=== PATIENT | female | born 1950 | race Caucasian/White ===

== ENCOUNTER 2018-02-27 12:58 | Inpatient (IN) | payer OTHER ==
[~2018-02-27] VITALS: Ht 152.4 cm; Wt 43.4 kg
--- NOTE | ~2018-02-27 | 2DMMODE ---
[facility] [address] [place] [address] 2 D/M-MODE ECHOCARDIOGRAM Name: STEVESAM RONI Room #: 423-1 ADM IN M.R.#: [id number] Admission: 02/27/18 Attend Phys: Randolph Ray, Discharge: Date of : 54 Date of Service: 03/01/18 0908 Report #: [id number] THIS REPORT FOR: //name// APPROVED REPORT Study performed: 02/28/2018 12:53:06 EXAM: Comprehensive 2D, Doppler, and color-flow Echocardiogram Patient Location: Echo lab Room #: 423 Status: routine BSA: 1.36 HR: 85 bpm BP: 92/62 mmHg Rhythm: NSR Other Information Study Quality: Adequate Indications Short of breath. Hx: AL, stent, CHF, AICD, HTN, HLP, tobacco. 2D Dimensions RVDd: 28.20 mm IVSd: 5.90 (7-11mm) LVOT Diam: 19.89 (18-24mm) LVDd: 46.44 mm PWd: 7.55 (7-11mm) Ascending Ao: 28.27 (22-36mm) LVDs: 35.71 (25-40mm) Aortic Root: 30.65 mm Volumes Left Atrial Volume (Systole) Single Plane 4CH: 19.17 mL Single Plane 2CH: 28.62 mL LA ESV Index: 18.00 mL/m2 Aortic Valve AoV Peak Yefri.: 1.48 m/s AO Peak Gr.: 8.77 mmHg LVOT Max P.15 mmHg LVOT Max V: 1.02 m/s CASEY Vmax: 2.14 cm2 Mitral Valve E/A Ratio: 0.8 MV Decel. Time: 134.80 ms MV E Max Yefri.: 0.86 m/s [facility] [place] [address] 2 D/M-MODE ECHOCARDIOGRAM Name: SAM WILSON [facility] Room #: 423-1 ADM IN M.R.#: [id number] Admission: 02/27/18 Attend Phys: Randolph Ray, Discharge: Date of : 54 Date of Service: 03/01/18 0908 Report #: [id number] MV A Yefri.: 1.05 m/s MV PHT: 39.09 ms IVRT: 83.04 ms Pulmonary Valve PV Peak Yefri.: 0.95 m/s PV Peak Gr.: 3.59 mmHg Pulmonary Vein P Vein S: 0.54 m/s P Vein D: 0.88 m/s P Vein S/D Ratio: 0.61 Tricuspid Valve TR Peak Yefri.: 3.68 m/s RAP Estimate: 5.00 mmHg TR Peak Gr.: 54.24 mmHg PA Pressure: 59.00 mmHg Left Ventricle The left ventricle is normal size. Regional wall motion abnormalities are noted.ant wall hypo There is normal left ventricular wall thickness. Left ventricular systolic function is severely decreased. LVEF is 30-35%. Mild diastolic dysfunction is present (impaired relaxation pattern). Right Ventricle The right ventricle is normal size. The right ventricular systolic function is normal. Device lead is present in the right ventricle. Atria The left atrium size is normal. The right atrium size is normal. Aortic Valve The aortic valve is normal in structure. No aortic regurgitation is present. There is no aortic valvular stenosis. Mitral Valve The mitral valve is normal in structure. Trace mitral regurgitation. No evidence of mitral valve stenosis. Tricuspid Valve The tricuspid valve is normal in structure. Moderate tricuspid regurgitation. Estimated PAP is 60mmHg. Pulmonic Valve Pulmonic valve is not well visualized. [facility] [address] [place] [address] 2 D/M-MODE ECHOCARDIOGRAM Name: SAM WILSON [facility] Room #: 423-1 [facility] IN ..#: [id number] Admission: 02/27/18 Attend Phys: Randolph Ray, Discharge: Date of : 54 Date of Service: 03/01/18 0908 Report #: [id number] Great Vessels The aortic root is normal in size. The ascending aorta is normal in size. IVC is normal in size and collapses >50% with inspiration. Pericardium There is no pericardial effusion. <Conclusion> The left ventricle is normal size. Regional wall motion abnormalities are noted.ant wall hypo LVEF is 30-35%. Mild diastolic dysfunction is present (impaired relaxation pattern). The right ventricle is normal size. The left atrium size is normal. The aortic valve is normal in structure. Trace mitral regurgitation. Moderate tricuspid regurgitation. Estimated PAP is 60mmHg. The aortic root is normal in size. There is no pericardial effusion. <ELECTRONICALLY SIGNED> By: Av Silva MD, FACC 03/01/18907 7 7 Av Silva MD, FACC /INF
--- NOTE | ~2018-02-27 | PATH ---
[facility] [address] [place] [address] PATHOLOGY RPT PROCEDURE Name: WILSONSAM RONI Room #: 423-1 DIS IN M.R.#: [id number] Admission: 02/27/18 Date of : 54 Discharge: 03/05/18 Report #: [id number] Path Case #: [id number] L[facility] Accession Number: [id number] . 01 Material submitted: . LEFT LOBE LIVER MASS BX . 01 Clinician provided ICD-10: R10.9 . 01 Clinical history: . Left lobe liver mass . 02 Diagnosis: Liver, left lobe liver mass, needle core biopsy: - COMPATIBLE WITH A POORLY DIFFERENTIATED CARCINOMA, PLEASE SEE COMMENT. [facility]/03/04/2018 . 02 Comment: Examination shows a poorly differentiated malignant neoplasm with a subtle glandular architecture. Based on the presence of multiple bone lesions, large hepatic lesion, adrenal mass, lung masses, splenic mass, as well as hilar lymphadenopathy, immunohistochemical stains are ordered on block A1. The tumor shows membranous reactivity to Vimentin, CK7, and CK19. The nonreactive immunohistochemical stains include hepatocyte specific antigen, CK20, TTF-1 and p63. . Based on the morphology as well as the reactive immunohistochemical stains, the differential diagnosis includes a poorly differentiated lung adenocarcinoma, hepatobiliary cholangiocarcinoma, as well as a poorly differentiated renal cell carcinoma and tumor of Mullerian (endometrial) origin. Clinical correlation is required. . Co-review: Dr. Nayla Sawant. . Findings are discussed with Dr. Royal Delacruz at approximately 12:25 pm on 03/04/2018. (IUV:pit 03/04/2018) . 02 Electronically signed: . Maisha Oneill MD, Pathologist NPI- [id number] . 01 Gross description: . Received in formalin labeled "Sam Wilson, left lobe liver BX," are multiple fragments of needle cores of lowe soft tissue measuring 2.3 x 0.4 x 0.1 cm in aggregate dimensions. The [place] [address] PATHOLOGY RPT PROCEDURE Name: SAM WILSON RONI Room #: 423-1 DIS IN M.R.#: [id number] Admission: 02/27/18 Date of : 54 Discharge: 03/05/18 Report #: [id number] Path Case #: [id number] cassette A1. (TSD; 02/28/2018) TOB/TOB . 02 Pathologist provided ICD-10: C22.9 . 02 CPT . 447670, E80818, S75848 Specimen Comment: A courtesy copy of this report has been sent to Specimen Comment: [phone], . Specimen Comment: Report sent to / DR MORRISON Specimen Comment: A duplicate report has been generated due to demographic updates. Performed at: [address], [place] [id number] MD Larry Borges MD Phone: [phone] Performed at: [address] [id number] MD Maisha Oneill MD Phone: [phone]
--- NOTE | ~2018-02-27 | HC ---
[facility] [place] [address] CONSULTATION Name: SAM WILSON Room #: 423-1 ADM IN M.R.#: [id number] Admission: 02/27/18 Attend Phys: Randolph Rya MD Discharge: Date of : 54 Report #: [id number] THIS REPORT FOR: //name// CC: Cristina King MD REFERRING PHYSICIAN: Randolph Ray M.D. REASON FOR CONSULTATION: Possible lung cancer with liver masses. HISTORY OF PRESENT ILLNESS: The patient is a very pleasant 67-year-old female. If I recall, she is originally from [place] and maybe now lives in [place]. 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 She has about a 3-week history of feeling like a low-grade fever, having some weakness, having poor appetite, also some left shoulder/flank pain and also shortness of air, especially when going upstairs. She has got 14 stairs to her house/apartment. No coughing. Bowels have been plus or minus for her. Weight has been maybe down 7 pounds in the past week; she is unsure about a longer time for it than that. No new skin spots. She is not aware of any lymphadenopathy. Has had some abdominal discomfort. Scans here do show the concern for multifocal liver disease with a 9-cm hepatic mass with central necrosis, also a 3 cm left adrenal mass, a splenic mass and a lytic bone lesion at L2. There is a pathologic fracture there. There is also infiltrate in the right middle lobe of the lung, but CT chest is pending as is MRI head. PAST MEDICAL HISTORY: The patient's past medical history is notable for history of MA in about 1989, with maybe some heart procedure with angioplasty and stent to the LAD at that time at a later date. 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 Cristina Smith for that. SOCIAL HISTORY: Smoked up until several weeks ago. Alcohol, none significant. FAMILY HISTORY: Father had heart trouble. Mother had breast cancer in her 70s, from something else. She has 5 siblings. One of the sisters I think had a congenital heart trouble. If I understand right, one of the brothers may have had a skin cancer. MEDICATIONS AT HOME: Include alprazolam, aspirin, hydrochlorothiazide, [address] [address] CONSULTATION Name: SAM WILSON RONI Room #: 423-1 ADM IN M.R.#: [id number] Admission: 02/27/18 Attend Phys: Randolph Ray MD Discharge: Date of : 54 Report #: [id number] atorvastatin, digoxin 0.125, carvedilol 12.5 and bupropion 100 daily. Here in the hospital, her medications include bupropion 100 daily, digoxin 0.125 daily, atorvastatin 80 daily and aspirin 325 daily. I added hydrocodone p.r.n. She is on Lovenox 40 at bedtime, carvedilol 12.5 b.i.d., morphine IV p.r.n., Zofran p.r.n., ceftriaxone 1 g daily, Xanax 0.25 t.i.d., azithromycin 500 mg daily, MiraLax daily and IV fluids at 80 mL an hour. PHYSICAL EXAMINATION: GENERAL: The patient appears her stated age. VITAL SIGNS: Height is 5 feet, which is 152.4 cm. Weight is 95.7 pounds, which is 43.4 kilograms. Recent blood pressure is 78/58 and earlier had run at 100/55, O2 sat 91%, respirations 18, pulse 88 and temperature is 97.9. MOOD: She is alert, pleasant and anxious. NEUROLOGIC: Face is symmetrical. Speech and thought pattern appear to be normal. She is moving all extremities. LYMPHATICS: No enlarged lymph nodes in the neck, axillary or groin regions. LUNGS: Slightly diminished on the right base. ABDOMEN: Slightly tender. There may be a slight fullness; however, it has been difficult to examine the patient due to some discomfort. EXTREMITIES: Without clubbing or cyanosis. LABORATORY DATA: Labs are notable for electrolytes that are normal. Potassium is slightly low at 3.2, BUN of 15 and creatinine 0.8. Bilirubin normal, alkaline phosphatase 135. Albumin 3.2. Total protein 7.6. Coags, I ordered, are pending. White count this morning 7.4, hemoglobin 11.3, MCV 90.7, RDW 12.7 and platelets 181,000. Differential has slight increase in segment neutrophils and monocyte percentage. TSH normal at 0.963. Vitamin B12 low normal at 398. U/A, not acute. ASSESSMENT AND PLAN: 1. Changes of CAT scan including liver mass, adrenal mass, splenic mass and L2 lesion, worrisome for metastatic cancer. I had talked with the ER doctor yesterday. Await CT chest and MRI head. I had also talked with Dr. Dario Talbert in Interventional Radiology about consulting for probable biopsy. This was all discussed with the patient and her family. They are aware that we will need to wait to see if this is cancer and then what type and also there may be some markers to determine appropriate therapy, if she wishes to take it. 2. Pain. Has morphine and opioids available. 3. Heart failure and coronary artery disease. Defer carvedilol, digoxin and hydrochlorothiazide to others. 4. Hyperlipidemia. Defer stents to others. 5. Possible pneumonia. Continues 2 antibiotics. Cultures pending. 6. Depression. Continues bupropion. 7. History of skin cancers. Follows with Dr. Smith. No active issues. [address] [address] CONSULTATION Name: SAM WILSON [facility] Room #: 423-1 ADM IN M.R.#: [id number] Admission: 02/27/18 Attend Phys: Randolph Ray MD Discharge: Date of : 54 Report #: [id number] head ok CT chest large right hilar mass and small PE US left leg dvt in popliteal, right clear We will follow with you. <ELECTRONICALLY SIGNED> By: Bar Delacruz MD 03/01/18 0720 0841 1121 Bar Delacruz MD /caryn
--- NOTE | ~2018-02-27 | HC ---
[facility] [place] [address] CONSULTATION Name: SAM WILSON Room #: 423-1 ADM IN M.R.#: [id number] Admission: 02/27/18 Attend Phys: Randolph Ray MD Discharge: Date of : 54 Report #: [id number] THIS REPORT FOR: //name// CC: Randolph King PULMONARY CONSULTATION REFERRAL PHYSICIAN: Randolph Ray MD. REASON FOR REFERRAL: Lung mass. HISTORY OF PRESENT ILLNESS: The patient is a 67-year-old white female who was admitted with abdominal pain and back pain. CT chest showed large lung mass. A pulmonary consultation was requested. The patient has been previously seen by Dr. Houston for COPD in the past. She states that she has smoked about 2 packs a day, having quit recently. She was in her usual state of health until few weeks prior to presentation. She started to develop mild abdominal pain, dizziness, lightheadedness, and fever. CT abdomen and pelvis shows metastatic process of the liver, spleen, spine, kidneys. CT of the chest revealed a large right-sided lung mass. She is now status post liver biopsy. She is complaining of pain there. Otherwise, denies any recent night sweats. Denies any recent febrile illness, hemoptysis, hematemesis, hematochezia or melena. PAST MEDICAL HISTORY: Notable for hypertension, depression, coronary artery disease, myocardial infarction in 1997, depression, ischemic cardiomyopathy with ejection fraction 25% from a cardiac catheterization in 2012, history of supraventricular tachycardia. PAST SURGICAL HISTORY: Notable for bladder repair, defibrillator implantation, hysterectomy. She also had prior oral surgery. ALLERGIES: None to medications. HOME MEDICATIONS: Reviewed, which include Xanax, aspirin, Lipitor, Wellbutrin, Coreg, Lanoxin, hydrochlorothiazide. FAMILY HISTORY: Notable for mother with peripheral vascular disease and diabetes. Father with coronary artery disease. SOCIAL HISTORY: The patient had smoked until recently about 1-2 packs a day for [facility] [place] [address] CONSULTATION Name: SAM WILSON [facility] Room #: 423-1 [facility] IN .R.#: [id number] Admission: 02/27/18 Attend Phys: Randolph Ray MD Discharge: Date of : 54 Report #: [id number] most of her life. Drinks occasionally. She has family who lives close by in [place]. REVIEW OF SYSTEMS: As mentioned above. Otherwise, 10-point system review is notable for progressive weakness, some weight loss. PHYSICAL EXAMINATION: GENERAL: She is awake, alert, appears mildly distressed. VITAL SIGNS: Temperature is 97.3 degrees Fahrenheit, pulse is 90, respiratory rate is 16, blood pressure is 90/60 mmHg, saturation 92%. HEENT: Unremarkable. NECK: Supple, without lymphadenopathy or thyromegaly. CHEST: Breath sounds are fair due to poor effort. Decreased breath sounds in the right lung field. CARDIOVASCULAR: Normal S1, S2. No murmur or gallop. There is no JVD. There is no carotid bruit. Pulses are 2+/4+ bilaterally. ABDOMEN: Soft, tender in the right upper quadrant, no obvious masses felt. GENITOURINARY: Deferred. RECTAL: Deferred. EXTREMITIES: No edema. LABORATORY DATA: CT chest revealed a large central right hilar mass, which extends circumferentially around the pulmonary arteries and pulmonary veins along with bronchus intermedius. The bronchus intermedius appears to be more than 50% narrowed due to the lung mass. Subcarinal adenopathy is also noted. There is a necrotic 3 cm nodule seen in the right middle lobe associated with infiltrates in the right upper and right middle lobes. There is small nonobstructing pulmonary emboli noted in the right lower lobe. There appears to be questionable lung nodule seen in the left lower lobe also. CT abdomen and pelvis revealed a multifocal metastatic disease including a 9 cm hepatic mass with central necrosis, L2 vertebral body and right iliac wing lytic lesion, 1.5 cm splenic mass, probable pathologic fracture involving the L2 vertebral body. Procalcitonin level is 0.5. Prealbumin 14.5. CT head was grossly unremarkable for any acute intracranial changes or masses. Doppler ultrasound of the lower extremities shows DVT involving the left popliteal vein. Electrolytes: Sodium 138, potassium 3.2, chloride 102, CO2 is 27, BUN is 15, creatinine 0.8. Liver enzymes are mildly abnormal. WBC is 11,700, hemoglobin is 13.1, platelets are normal. No evidence of bandemia. IMPRESSION: 1. Large right hilar mass along with right middle lobe necrotic lesion, mediastinal adenopathy along with probable intra-abdominal metastases in this 67-year-old white female. Primary bronchogenic carcinoma with mets is likely. 2. Infiltrates, right middle lobe, right upper lobe, likely postobstructive pneumonia. 3. Coronary artery disease with ischemic cardiomyopathy. [facility] [address] [place] [address] CONSULTATION Name: SAM WILSON Room #: 423-1 ADM IN M.R.#: [id number] Admission: 02/27/18 Attend Phys: Randolph Ray MD Discharge: Date of : 54 Report #: [id number] 4. Hypertension. 5. Tobacco abuse. RECOMMENDATION: We will await the result of her ultrasound and biopsy. This likely represents stage 4 metastatic process. Agree with broad-spectrum antibiotics to treat for presumed postobstructive pneumonia. In regards to lung pathology, the patient may require urgent treatment involving the bronchus intermedius. It appears to be narrowing due to the lung mass. Either radiation therapy or brachytherapy may be an option. Oncology has been consulted. She has underlying COPD. Baseline spirometry will be helpful, though I am not certain patient can do the procedure. Continue bronchodilators for now. Wean O2 for saturation 90%. Overall outlook appears to be quite poor given the extensive metastatic process. Thank you for this consultation. <ELECTRONICALLY SIGNED> By: Jefferson Naylor MD 03/01/18 1545 1753 2225 Jefferson Naylor MD /nt
--- NOTE | ~2018-02-27 | EKG ---
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: MZOODanna : 1950 Requested By: Leah Ewing Order Number: [id number] MD: Jonathan Dunham Measurements Intervals [place] Rate: 103 P: 71 [place]: 143 QRS: -47 QRSD: 80 T: 62 QT: 332 QTc: 435 Interpretive Statements Sinus tachycardia Probable left atrial enlargement LAD, consider left anterior fascicular block LVH with secondary repolarization abnormality Anterior infarct, old Compared to ECG 06/16/2003 05:35:37 Electronically Signed On 03-04-2018 16:52:19 CDT by Jonathan Dunham [email or web address] <ELECTRONICALLY SIGNED> By: Jonathan Dunham MD 03/04/18 1652 1311 1311 Jonathan Dunham MD /EPI
--- NOTE | ~2018-02-27 | HC ---
[facility] [place] [address] CONSULTATION Name: SAM WILSON RONI Room #: 423-1 DIS IN M.R.#: [id number] Admission: 02/27/18 Attend Phys: Randolph Ray MD Discharge: 03/05/18 Date of : 54 Report #: [id number] THIS REPORT FOR: //name// CC: Randolph King HISTORY OF PRESENT ILLNESS: A 67-year-old female who is well known to me. I followed her for 20 years now since an acute anterior wall myocardial infarction with an emergent stent that was placed in 1997 and subsequently, a moderate ischemic cardiomyopathy with AICD. History of SVT, although minimal recurrence of any heart failure. Ejection fraction has been in the 30% range, mild carotid disease. She has been relatively stable from a cardiac perspective. She has been compliant with her medications. Unfortunately, she has been having some significant weight loss; the daughters have talked about a 7-pound weight loss and weak for the last few months. She continued to be a smoker after her coronary event 20 years ago, but however, did quit last December. Also had significant left-sided flank and back pain. The CAT scan looks like lytic lesions with metastatic disease to liver, spleen, kidney and spine. Some definite anorexia, some intermittent nausea, vomiting and constipation. She has had some intermittent diarrhea. MEDICATIONS: Her medications have been Xanax, aspirin, Lipitor 80, Wellbutrin, carvedilol 3.125 b.i.d., digoxin 0.125 and hydrochlorothiazide. PAST MEDICAL HISTORY: Positive for coronary artery disease with emergent stents; significant anterior infarct with ischemic cardiomyopathy, EF 25% to 30% with ICD; PSVT; hypertension; hypercholesterolemia and depression. She has had a prior hysterectomy and bladder repair. ALLERGIES: LOSARTAN, ADONIS INHIBITORS AND SITAGLIPTIN. FAMILY HISTORY: Father with premature coronary disease. SOCIAL HISTORY: She is , daughters are present. She was a smoker until last December for 40+ years. Social alcohol use. REVIEW OF SYSTEMS: Negative, except for stated above, with the significant weight loss and progressive discomfort and pain. LABORATORY DATA: Potassium 3.2, creatinine 0.8. Alkaline phosphatase 135. BNP was 475. Troponin was negative. H and H 11.3 and 32.6, white count 7.4 and platelets 181,000. PHYSICAL EXAMINATION: GENERAL: She has minimal discomfort. She is alert. VITAL SIGNS: Blood pressure was low, but currently 92/62 with a pulse of 80. HEENT: Eyes reveal no xanthelasmas[place] [address] CONSULTATION Name: SAM WILSON [facility] Room #: 423-1 [facility] IN M.R.#: [id number] Admission: 02/27/18 Attend Phys: Randolph Ray MD Discharge: 03/05/18 Date of : 54 Report #: [id number] NECK: Shows preserved upstrokes, without JVD or bruits. LUNGS: Slight prolonged phase, but clear. CARDIAC EXAMINATION: Regular rate and rhythm, S1, S2 distant. ABDOMEN: Soft. No specific tenderness. EXTREMITIES: Reveal trace edema. Distal pulses intact. NEUROLOGIC: Nonfocal. SKIN: Warm and dry, without xanthoma or ulcer. MUSCULOSKELETAL: Generalized arthritic changes. ASSESSMENT: 1. Ischemic cardiomyopathy, ejection fraction 25% to 30%, functional class 1. 2. Coronary artery disease with emergent left anterior descending stent, 1997. 3. Hypertension. 4. Hypercholesterolemia. 5. Early diagnosis is metastatic disease with lytic lesions. RECOMMENDATIONS AND PLAN: We will repeat her echo Doppler and we will interrogate her ICD, currently being staged or looking for diagnosis. She is on no anticoagulants, so she could proceed with biopsy. Head CT today. I have discussed with Dr. Ray and will call Dr. Delacruz of Hematology-Oncology. We will continue to follow with you. We have discontinued her carvedilol and hypertensive medications. Her weight loss and her debilitated state has certainly decreased her blood pressure requirements. No evidence of overt heart failure here. We will continue to follow with you. Thank you for asking us to assist in the care of this patient. <ELECTRONICALLY SIGNED> By: Av Silva MD, FACC 03/13/18 1257 0925 1141 Av Silva MD, FACC /nt
[~2018-02-27 12:58] MED LIST: ASPIRIN325 PO; BYSTOLIC 5 MG5 M1 PO; HYDROCHLOROTH12.5 MG PO; KEFLEX250 MG PO; LANOXIN 0.120.125 M1 PO; LIPITOR80 MG PO; XANAX 0.25 MG0.25 MG PO
[2018-02-27 12:59] VITALS: BP 115/92
[2018-02-27 13:41] LABS: ABSOLUTE NEUTROPHILS 9.5 thou/uL (1.4-8.2); BASOPHILS 0.8 % (0.0-2.0); EOSINOPHILS 1.9 % (0.0-3.0); HEMATOCRIT 37.7 % (37.0-47.0); HEMOGLOBIN 13.1 gm/dL (12.0-15.0); LYMPHOCYTES 7.8 % (24.0-44.0); MCHC 34.9 g/dL (28.0-37.0); MONOCYTES 8.7 % (1.0-8.0); PLATELET COUNT 224 thou/uL (150-400); POLYS 80.8 % (36.0-66.0); RBC 4.23 mil/uL (4.20-5.00); RDW 12.4 % (10.5-14.5); WBC 11.7 thou/uL (4.0-11.0)
[2018-02-27 13:44] LABS: CALCIUM 9.4 mg/dL (8.5-10.1); CREATININE 0.7 mg/dL (0.6-1.0); POTASSIUM 3.5 mmol/L (3.5-5.1)
[2018-02-27 13:49] LABS: ALBUMIN 3.2 g/dL (3.4-5.0); TOTAL BILIRUBIN 0.7 mg/dL (<0.1-1.0); TOTAL PROTEIN 7.6 g/dL (6.4-8.2)
[2018-02-27 14:01] LABS: URINE BILIRUBIN NEGATIVE (Negative); URINE BLOOD NEGATIVE (Negative); URINE CLARITY SL CLOUDY; URINE COLOR YELLOW; URINE GLUCOSE-RANDOM* NEGATIVE (Negative); URINE KETONES NEGATIVE (Negative); URINE NITRITE-REFLEX NEGATIVE (Negative); URINE PROTEIN (DIPSTICK) TRACE (Negative); URINE UROBILINOGEN 0.2 E.U./dl (0.2-1.0)
[2018-02-27 14:02] LABS: URINE LEUKOCYTES-REFLEX TRACE (Negative)
[2018-02-27] MEDS ORDERED: CARVEDILOL12.5 MG PO (15:22)
[2018-02-27] MEDS ORDERED: WELLBUTRIN 100100 MG PO (15:23)
[2018-02-27 16:47] LABS: ALBUMIN 3.1 g/dL (3.4-5.0); TOTAL PROTEIN 7.8 g/dL (6.4-8.2)
[2018-02-27 16:56] VITALS: BP 100/55
[2018-02-27 17:13] LABS: TSH 0.963 uIU/mL (0.358-3.740)
[2018-02-27 17:16] VITALS: BP 92/53
[2018-02-27 19:07] VITALS: BP 103/64
[2018-02-28] VITALS (9 sets, daily range): BP systolic 78–94; BP diastolic 49–62
[2018-02-28 05:29] LABS: HEMATOCRIT 32.6 % (37.0-47.0); HEMOGLOBIN 11.3 gm/dL (12.0-15.0); MCH 31.5 pg (26.0-34.0); MCHC 34.8 g/dL (28.0-37.0); MCV 90.7 fL (80.0-100.0); RBC 3.59 mil/uL (4.20-5.00); RDW 12.7 % (10.5-14.5); WBC 7.4 thou/uL (4.0-11.0)
[2018-02-28 05:36] LABS: CALCIUM 8.1 mg/dL (8.5-10.1); CREATININE 0.8 mg/dL (0.6-1.0); MAGNESIUM 1.8 mg/dL (1.8-2.4); POTASSIUM 3.2 mmol/L (3.5-5.1)
[2018-02-28 08:54] LABS: APTT 33.5 Seconds (24.5-32.8); PROTIME 10.4 Seconds (9.3-11.4)
[2018-03-01 04:30] VITALS: BP 100/57
[2018-03-01 05:50] LABS: HEMATOCRIT 28.8 % (37.0-47.0); HEMOGLOBIN 9.9 gm/dL (12.0-15.0); MCH 31.1 pg (26.0-34.0); MCHC 34.4 g/dL (28.0-37.0); MCV 90.4 fL (80.0-100.0); RBC 3.18 mil/uL (4.20-5.00); RDW 12.4 % (10.5-14.5); WBC 6.6 thou/uL (4.0-11.0)
[2018-03-01 06:01] LABS: CALCIUM 7.6 mg/dL (8.5-10.1); CREATININE 0.5 mg/dL (0.6-1.0); MAGNESIUM 1.7 mg/dL (1.8-2.4); POTASSIUM 3.5 mmol/L (3.5-5.1)
[2018-03-01 08:33] VITALS: BP 84/65
[2018-03-01 15:44] VITALS: BP 92/62
[2018-03-01 19:30] VITALS: BP 90/48
[2018-03-02 04:08] VITALS: BP 108/62
[2018-03-02 07:01] LABS: HEMATOCRIT 32.2 % (37.0-47.0); HEMOGLOBIN 11.1 gm/dL (12.0-15.0); MCH 31.4 pg (26.0-34.0); MCHC 34.6 g/dL (28.0-37.0); MCV 90.8 fL (80.0-100.0); RBC 3.54 mil/uL (4.20-5.00); RDW 12.6 % (10.5-14.5); WBC 9.4 thou/uL (4.0-11.0)
[2018-03-02 07:09] LABS: CREATININE 0.6 mg/dL (0.6-1.0); MAGNESIUM 1.7 mg/dL (1.8-2.4); POTASSIUM 3.3 mmol/L (3.5-5.1)
[2018-03-02 08:10] VITALS: BP 93/65
[2018-03-02 20:00] VITALS: BP 120/76
[2018-03-03 05:30] VITALS: BP 132/85
[2018-03-03 05:37] LABS: HEMATOCRIT 29.1 % (37.0-47.0); HEMOGLOBIN 10.1 gm/dL (12.0-15.0); MCH 31.3 pg (26.0-34.0); MCHC 34.6 g/dL (28.0-37.0); MCV 90.5 fL (80.0-100.0); RBC 3.22 mil/uL (4.20-5.00); WBC 9.3 thou/uL (4.0-11.0)
[2018-03-03 05:41] LABS: CALCIUM 8.1 mg/dL (8.5-10.1); CREATININE 0.5 mg/dL (0.6-1.0); MAGNESIUM 2.1 mg/dL (1.8-2.4); POTASSIUM 4.2 mmol/L (3.5-5.1)
[2018-03-03 07:45] VITALS: BP 106/72
[2018-03-03 08:10] VITALS: BP 124/60
[2018-03-03 17:07] VITALS: BP 100/65
[2018-03-03 19:51] VITALS: BP 120/71
[2018-03-04 05:16] VITALS: BP 114/65
[2018-03-04 14:21] VITALS: BP 108/77
[2018-03-04 16:17] VITALS: BP 98/61
[2018-03-04 22:10] VITALS: BP 115/74
[2018-03-05 06:16] VITALS: BP 110/63
[2018-03-05 07:34] VITALS: BP 97/66
[2018-03-05 11:37] VITALS: BP 97/66
== END 2018-03-05 14:03 | disposition hospice, home (50) | DRG 871 ==
LOC: ER 12:58 → EROBS 16:21 → 4E 16:21
PROVIDERS: Internal Medicine; Internal Medicine Hematology & Oncology; Physician Assistant
PROC: 0FB23ZX Excision of Left Lobe Liver, Percutaneous Approach, Diagnostic (ICD-10-PCS; principal; 2018-02-28)
DX: A41.9 Sepsis, unspecified organism (principal); J18.9 Pneumonia, unspecified organism; I26.99 Other pulmonary embolism without acute cor pulmonale; J96.01 Acute respiratory failure with hypoxia; C78.7 Secondary malignant neoplasm of liver and intrahepatic bile duct; I82.432 Acute embolism and thrombosis of left popliteal vein; D68.59 Other primary thrombophilia; C79.89 Secondary malignant neoplasm of other specified sites; J44.0 Chronic obstructive pulmonary disease with (acute) lower respiratory infection; I25.5 Ischemic cardiomyopathy; I11.0 Hypertensive heart disease with heart failure; I95.9 Hypotension, unspecified; F41.1 Generalized anxiety disorder; R91.8 Other nonspecific abnormal finding of lung field; R00.0 Tachycardia, unspecified; I50.9 Heart failure, unspecified; E05.90 Thyrotoxicosis, unspecified without thyrotoxic crisis or storm; R59.0 Localized enlarged lymph nodes; E78.00 Pure hypercholesterolemia, unspecified; E78.5 Hyperlipidemia, unspecified; F32.9 Major depressive disorder, single episode, unspecified; I25.10 Atherosclerotic heart disease of native coronary artery without angina pectoris; I25.2 Old myocardial infarction; Z90.710 Acquired absence of both cervix and uterus; Z98.51 Tubal ligation status; Z95.5 Presence of coronary angioplasty implant and graft; Z79.82 Long term (current) use of aspirin; Z79.899 Other long term (current) drug therapy; Z82.49 Family history of ischemic heart disease and other diseases of the circulatory system; Z80.3 Family history of malignant neoplasm of breast; Z80.8 Family history of malignant neoplasm of other organs or systems; Z85.828 Personal history of other malignant neoplasm of skin; Z88.8 Allergy status to other drugs, medicaments and biological substances; Z87.891 Personal history of nicotine dependence; Z83.3 Family history of diabetes mellitus; Z95.810 Presence of automatic (implantable) cardiac defibrillator
CPT/HCPCS: 10183